=== PATIENT | female | born 1990 | race Caucasian/White ===

== ENCOUNTER 2016-08-01 17:37 | Emergency (ER) | payer OTHER ==
[~2016-08-01] VITALS: Ht 175.3 cm; Wt 68.0 kg
[~2016-08-01 17:37] MED LIST: MEDROL DOSPAK21 TAB PO; NORCO 5-325 TA1 EACH PO; YASMIN 28 TABL1 EACH
[2016-08-01 17:38] VITALS: BP 138/87
[2016-08-01] MEDS ORDERED: ORTHO TRI-CYCL1 EAC1 PO (17:53)
[2016-08-01] MEDS ORDERED: HYOPHEN TABLET1 EACH PO (17:53)
[2016-08-01] MEDS ORDERED: AUGMENTIN 875875 MG PO (17:56)
[2016-08-01] MEDS ORDERED: IBUPROFEN 600600 M1 PO (17:56)
[2016-08-01] MEDS ORDERED: NORCO 5-325 TA1 EACH PO (17:58)
== END 2016-08-01 18:08 | disposition home or self-care (01) ==
LOC: ER 17:37
DX: S61.451A Open bite of right hand, initial encounter (principal); S41.051A Open bite of right shoulder, initial encounter; F10.99 Alcohol use, unspecified with unspecified alcohol-induced disorder; W55.01XA Bitten by cat, initial encounter; Y93.89 Activity, other specified; Y92.89 Other specified places as the place of occurrence of the external cause; Y99.8 Other external cause status